=== PATIENT | male | born 1975 | race Hispanic/Latino ===

== ENCOUNTER → 2022-08-24 | Outpatient (CLI) | payer BC ==
[~2022-08-24] MED LIST: AMLO2.5T4 PO; HYDR12.54 PO
[2022-08-24 11:27] LABS: POTASSIUM 3.7 mmol/L (3.5-5.1)
== END | disposition home or self-care (01) ==
LOC: LAB 08:10
PROVIDERS: ATTEND Internal Medicine
DX: I10 Essential (primary) hypertension (principal); E78.6 Lipoprotein deficiency
CPT/HCPCS: 36415; 80048

== ENCOUNTER → 2023-12-25 | Outpatient (CLI) | payer BC ==
[2023-12-25 21:53] VITALS: PULSE 52; RESP 12
[2023-12-25 22:30] VITALS: PULSE 59; RESP 12
[2023-12-25 23:00] VITALS: PULSE 53; RESP 10
[2023-12-25 23:33] VITALS: PULSE 64; RESP 10
[2023-12-26] VITALS (11 sets, daily range): PULSE 49–64; RESP 10–14
== END | disposition home or self-care (01) ==
LOC: SLP 20:12
PROVIDERS: ATTEND Internal Medicine
DX: G47.33 Obstructive sleep apnea (adult) (pediatric) (principal)
CPT/HCPCS: 95810

== ENCOUNTER → 2024-01-01 | Outpatient (CLI) | payer BC ==
[2024-01-01] VITALS (7 sets, daily range): PULSE 50–60; RESP 7–19
[2024-01-02] VITALS (8 sets, daily range): PULSE 50–76; RESP 12–13
== END | disposition home or self-care (01) ==
LOC: SLP 20:05
PROVIDERS: ATTEND Internal Medicine
DX: G47.33 Obstructive sleep apnea (adult) (pediatric) (principal); R09.02 Hypoxemia
CPT/HCPCS: 95811